=== PATIENT | male | born 2000 | race African-American/Black ===

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

== ENCOUNTER 2020-09-21 14:03 | Emergency (ER) | payer OTHER, SELFPAY ==
[2020-09-22 02:10] LABS: SARS-CoV-2 PCR by NAA Not Detected (NotDetected)
== END 2020-09-21 14:37 ==
LOC: MADERS 14:03
DX: R05 Cough (principal); R19.7 Diarrhea, unspecified; Z20.822 Contact with and (suspected) exposure to COVID-19; F17.210 Nicotine dependence, cigarettes, uncomplicated
CPT/HCPCS: 87635; 99284; U0003; U0005

== ENCOUNTER 2021-07-18 12:16 | Emergency (ER) | payer MEDICAID, SELFPAY ==
[2021-07-18 14:32] LABS: SARS-CoV-2 NAA Rapid Test Not Detected (NotDetected)
== END 2021-07-18 14:40 ==
LOC: MADERS 12:16
DX: B34.9 Viral infection, unspecified (principal); Z20.822 Contact with and (suspected) exposure to COVID-19; F17.210 Nicotine dependence, cigarettes, uncomplicated
CPT/HCPCS: 71045; U0002

== ENCOUNTER 2025-06-13 18:03 | Emergency (ER) | payer BC, SELFPAY ==
[2025-06-13] MEDS ORDERED: Acetaminophen 500 MG TAB ONE (18:25)
[2025-06-13] MEDS ORDERED: Ibuprofen 800 MG TAB ONE (18:25)
== END 2025-06-13 19:34 | disposition home or self-care (01) ==
LOC: MADERS 18:03
DX: M79.645 Pain in left finger(s) (principal); H90.5 Unspecified sensorineural hearing loss; F17.210 Nicotine dependence, cigarettes, uncomplicated; X58.XXXA Exposure to other specified factors, initial encounter; Y99.0 Civilian activity done for income or pay
CPT/HCPCS: 99283